=== PATIENT | male | born 1955 | race African-American/Black ===

== ENCOUNTER 2024-02-02 05:25 | Inpatient (IN) | payer OTHER ==
[~2024-02-02] VITALS: Ht 177.8 cm; Wt 88.5 kg
[2024-02-02] MEDS ORDERED: ONDANSETRON HCL 4MG/2ML INJ IV STA (06:58)
[2024-02-02] MEDS ORDERED: KETOROLAC 30MG/ML VIAL IV STA (06:58)
[2024-02-02 08:41] LABS: BASOPHILS % 0.8 % (0.0-2.0); DIFFERENTIAL COMMENT 0; EOSINOPHILS % 4.4 % (0.0-5.0); HEMOGLOBIN. 14.7 g/dL (14.0-18.0); LYMPHOCYTES % 36.9 % (20.0-50.0); MEAN CORPUSCULAR HGB CONC 32.1 g/dL (31.0-37.0); MEAN CORPUSCULAR VOLUME 74.7 fL (80.0-94.0); MEAN PLATELET VOLUME 8.9 fl (7.4-10.4); MONOCYTES % 6.3 % (2.0-8.0); NEUTROPHILS % 51.6 % (40.0-76.0); PLATELET 232 x1000/uL (130-400); RED BLOOD CELL COUNT 6.15 mill/uL (4.7-6.1); RED CELL DISTRIBUTION WIDTH 15.1 % (11.6-14.6); WHITE BLOOD COUNT 5.3 x1000/uL (4.5-11.0)
[2024-02-02 09:02] LABS: ALANINE AMINOTRANSFERASE 10 IU/L (10-49); ALBUMIN 4.3 g/dL (3.2-4.8); ASPARTATE AMINOTRANSFERASE 11 IU/L (<34); BILIRUBIN TOTAL 0.4 mg/dL (0.1-1.0); CALCIUM 9.2 mg/dL (8.7-10.4); CARBON DIOXIDE 26 mEq/L (21-32); CHLORIDE 102 mEq/L (98-107); CREATININE 0.9 mg/dL (0.6-1.3); GLUCOSE 231 mg/dL (70-105); POTASSIUM 3.8 mEq/L (3.5-5.1); PROTEIN TOTAL 6.9 g/dL (6.0-8.3); SODIUM 136 mEq/L (136-145); UREA NITROGEN BLOOD 6 mg/dL (9-23)
[2024-02-02] MEDS: ONDANSETRON HCL 4MG/2ML INJ IV NR (09:37)
[2024-02-02] MEDS: KETOROLAC 30MG/ML VIAL IV NR (09:37)
[2024-02-02] MEDS: OXYCODONE HCL/ACETAMINOPHEN 5/325MG TABLET PO ONE (09:37)
[2024-02-02 09:43] LABS: INR 0.9; PROTHROMBIN TIME 10.6 sec (9.6-11.0)
[2024-02-02 12:32] LABS: CLARITY URINE CLOUDY (CLEAR); COLOR URINE DARK YELLOW (YELLOW); GLUCOSE URINE NEGATIVE (NEGATIVE); KETONES URINE 2+ (NEGATIVE); LEUKOCYTE ESTERASE URINE NEGATIVE (NEGATIVE); NITRITE URINE NEGATIVE (NEGATIVE); OCCULT BLOOD URINE NEGATIVE (NEGATIVE); PH URINE 6.5 (4.5-8.0); PROTEIN URINE 2+ (NEGATIVE); SPECIFIC GRAVITY URINE 1.029 (1.005-1.030)
[2024-02-02 12:45] LABS: COARSE GRANULAR CASTS URINE 0-5 /lpf
[2024-02-02 12:49] LABS: BACTERIA URINE 1+; RBC URINE 0-2 /hpf (0-2); SQUAMOUS EPITHELIAL CELL URINE RARE /lpf (RARE/1+)
[2024-02-02] MEDS ORDERED: GUAIFENESIN 200MG/10ML SUGAR FREE UDC PO PRN (14:00)
[2024-02-02] MEDS ORDERED: NITROGLYCERIN 0.4MG TABLET SL SL PRN (14:00)
[2024-02-02] MEDS ORDERED: ONDANSETRON HCL 4MG/2ML INJ IV PRN (14:00)
[2024-02-02] MEDS ORDERED: MAGNESIUM/ALUMINUM HYDROXIDE/SIMETHICONE 30ML UDC PO PRN (14:00)
[2024-02-02] MEDS ORDERED: IPRATROPIUM/ALBUTEROL 0.5-3(2.5)MG/3ML NEB NEB PRN (14:00)
[2024-02-02] MEDS ORDERED: DOCUSATE SODIUM 100MG CAPSULE PO PRN (14:00)
[2024-02-02] MEDS ORDERED: ACETAMINOPHEN 325MG TABLET PO PRN ×2 (14:00)
[2024-02-02 16:13] LABS: AMYLASE 58 IU/L (30-118); IRON 65 ug/dL (65-175); T4 FREE 1.08 ng/dL (0.89-1.76); THYROID STIMULATING HORMONE 0.76 uIU/mL (0.55-4.78); TOTAL IRON BINDING CAPACITY 297 ug/dl (250-425)
[2024-02-02 16:25] LABS: FOLIC ACID (FOLATE) SERUM > 20.00 ng/mL (>5.38); VITAMIN B12 SERUM 376 pg/mL (211-911)
[2024-02-02 17:47] VITALS: BP 168/94; PULSE 59; RESP 19; TEMP 97.7
[2024-02-02] MEDS ORDERED: DEXTROSE 50% WATER 50ML SYRINGE IV PRN (18:00)
[2024-02-02] MEDS: KETOROLAC 15MG/ML VIAL IV PRN (18:40)
[2024-02-02 20:00] VITALS: BP 136/78; PULSE 94; RESP 18; TEMP 97
[2024-02-02] MEDS ORDERED: ZOLPIDEM TARTRATE 5MG TABLET PO PRN (21:00)
[2024-02-02] MEDS: SODIUM CHLORIDE 0.9% 1,000 ML IV SCH (21:00)
[2024-02-02] MEDS: PANTOPRAZOLE SODIUM 40 MG/VIAL IV SCH (21:09)
[2024-02-02] MEDS: ENOXAPARIN 40MG/0.4ML SYR SUBCUT SCH (21:09)
[2024-02-02] MEDS: BLOOD SUGAR DIAGNOSTIC STRIP TEST SCH (21:10)
[2024-02-02] MEDS: INSULIN LISPRO 100 UNITS/ML SUBCUT SCH (21:47)
[2024-02-02] MEDS: INSULIN GLARGINE 100 UNITS/ML SUBCUT SCH (21:47)
[2024-02-03] VITALS: BP 140/91; PULSE 98; RESP 18; TEMP 96.7
[2024-02-03 04:00] VITALS: BP 143/77; PULSE 93; RESP 18; TEMP 97.5
[2024-02-03 07:20] LABS: BASOPHILS % 0.6 % (0.0-2.0); DIFFERENTIAL COMMENT 0; EOSINOPHILS % 1.2 % (0.0-5.0); HEMATOCRIT. 42.3 % (42.0-52.0); HEMOGLOBIN. 13.5 g/dL (14.0-18.0); MEAN CORPUSCULAR HGB CONC 31.9 g/dL (31.0-37.0); MEAN CORPUSCULAR VOLUME 75.2 fL (80.0-94.0); MEAN PLATELET VOLUME 9.5 fl (7.4-10.4); MONOCYTES % 5.7 % (2.0-8.0); NEUTROPHILS % 64.5 % (40.0-76.0); PLATELET 237 x1000/uL (130-400); RED BLOOD CELL COUNT 5.63 mill/uL (4.7-6.1); RED CELL DISTRIBUTION WIDTH 15.3 % (11.6-14.6); WHITE BLOOD COUNT 6.7 x1000/uL (4.5-11.0)
[2024-02-03 07:52] LABS: ALANINE AMINOTRANSFERASE 11 IU/L (10-49); ALBUMIN 3.8 g/dL (3.2-4.8); AMYLASE 56 IU/L (30-118); ASPARTATE AMINOTRANSFERASE 17 IU/L (<34); BILIRUBIN TOTAL 0.3 mg/dL (0.1-1.0); CALCIUM 8.8 mg/dL (8.7-10.4); CARBON DIOXIDE 26 mEq/L (21-32); CHLORIDE 105 mEq/L (98-107); CREATININE 0.8 mg/dL (0.6-1.3); GLUCOSE 84 mg/dL (70-105); PHOSPHORUS 4.1 mg/dL (2.5-4.9); POTASSIUM 3.6 mEq/L (3.5-5.1); PROTEIN TOTAL 5.9 g/dL (6.0-8.3); SODIUM 139 mEq/L (136-145); UREA NITROGEN BLOOD 7 mg/dL (9-23)
[2024-02-03 08:00] VITALS: BP 137/87; PULSE 60; RESP 18; TEMP 98.1
[2024-02-03 12:00] VITALS: BP 120/80; PULSE 78; RESP 18; TEMP 98.7
[2024-02-03 16:00] VITALS: BP 138/90; PULSE 62; RESP 20; TEMP 98.1
[2024-02-03 20:00] VITALS: BP 145/86; PULSE 69; RESP 18; TEMP 96.9
[2024-02-04 04:00] VITALS: BP 155/80; PULSE 16; RESP 16; TEMP 96.5
[2024-02-04 08:00] VITALS: BP 151/78; PULSE 56; RESP 20; TEMP 97.2
[2024-02-04] MEDS ORDERED: LANTUSUD SUBCUT (10:19)
[2024-02-04] MEDS ORDERED: BLOO-1113 HHN (10:19)
[2024-02-04] MEDS ORDERED: LANC-493 TP (10:19)
[2024-02-04] MEDS ORDERED: FLAS1EAC2 TP (10:19)
[2024-02-04] MEDS ORDERED: OMEP20TA23 MT (10:19)
[2024-02-04] MEDS ORDERED: INSLIS SUBCUT (10:19)
[2024-02-04] MEDS: CLONIDINE 0.1MG TABLET PO PRN (11:25)
[2024-02-04 12:00] VITALS: BP 163/79; PULSE 67; RESP 20; TEMP 97.3
[2024-02-04 13:54] VITALS: BP 151/78; PULSE 61; TEMP 97.2; O2SAT 100
[2024-02-05] MEDS ORDERED: FAMOTIDINE 20MG TABLET PO SCH (09:00)
== END 2024-02-04 16:30 | disposition home or self-care (01) | DRG 74 ==
LOC: ER 05:25 → 6EST 12:55
PROVIDERS: ADMIT Internal Medicine; ATTEND Internal Medicine
DX: E11.43 Type 2 diabetes mellitus with diabetic autonomic (poly)neuropathy (principal); R10.11 Right upper quadrant pain; N40.0 Benign prostatic hyperplasia without lower urinary tract symptoms; Z88.5 Allergy status to narcotic agent; Z79.4 Long term (current) use of insulin; E66.9 Obesity, unspecified; K31.84 Gastroparesis
CPT/HCPCS: 36415; 74176; 74181; 76705; 80053; 81003; 82150; 82607; 82746; 82962; 83036; 83540; 83550; 83735; 84100; 84439; 84443; 85025; 93970; 99285; C9113; J1650; J1815; J1885; J2405